=== PATIENT | male | born 1970 | race Caucasian/White ===

== ENCOUNTER 2023-08-22 14:00 | Inpatient (IN) | payer BC, SELFPAY ==
[2023-08-21] VITALS (7 sets, daily range): BP systolic 111–125; BP diastolic 55–79; BMI 29.5; BMI 28.0
[2023-08-21 15:23] LABS: % Basophils 0.4 % (0-2); % Eosinophils 0.5 % (0-6); % Immature Granulocytes 0.5 % (0-0.5); % Lymphocytes 8.6 % (20.5-51.1); % Monocytes 5.4 % (1.7-9.3); % Neutrophils 84.6 % (42.2-75.2); Absolute Eosinophils 0.1 10^3/uL (0-0.7); Absolute Immature Granulocytes 0.1 10^3/uL (0-0.05); Absolute Monocytes 0.6 10^3/uL (0.1-0.6); Absolute Neutrophils 9.4 10^3/uL (1.4-6.5); Hematocrit 26.2 % (39.0-52.0); Hemoglobin 9.2 g/dL (13.0-18.0); Mean Corp Hgb Conc. 35.1 g/dL (33.0-37.0); Mean Corpuscular Hgb 34.8 pg (27.0-31.0); Mean Corpuscular Volume 99.2 fL (80.0-94.0); Nucleated Red Blood Cells % 0 % (-); Platelet Count 241 10^3/uL (130-400); Red Blood Cell Count 2.64 10^6/uL (4.70-6.10); Red Cell Dist. Width 13.8 % (11.5-14.5); White Blood Cell Count 11.1 10^3/uL (4.8-10.8)
[2023-08-21 15:33] LABS: ALT (SGPT) 46 U/L (0-50); AST (SGOT) 41 U/L (17-59); Alkaline Phosphatase 83 U/L (38-126); Blood Urea Nitrogen 14 mg/dl (9-20); Calcium 8.8 mg/dl (8.4-10.2); Carbon Dioxide 25 mmol/L (22-30); Chloride 106 mmol/L (98-107); Glucose 112 mg/dl (70-99); Lipase 38 U/L (23-300); Sodium 135 mmol/L (135-145); Total Bilirubin 2.3 mg/dl (0.2-1.3); Total Protein 6.7 g/dl (6.3-8.2); eGFR > 60.00
[2023-08-21] MEDS: BENADRYL 25 MG IV (17:04)
[2023-08-21 17:12] LABS: Urine Albumin 1+ (Neg - Trace); Urine Bilirubin 1+ (Negative); Urine Character Clear (Clear); Urine Color Amber; Urine Glucose Negative (Negative); Urine Ketone Trace (Negative); Urine Leukocyte Trace (Negative); Urine Nitrite Negative (Negative); Urine Occult Blood Negative (Negative); Urine Specific Gravity 1.025 (<1.030); Urine Urobilinogen 2+ (Neg - 1+)
[2023-08-21 17:20] LABS: Urine Squamous Cell 0-2 /LPF (Few)
[2023-08-21 17:21] LABS: Urine Red Blood Cell None Seen /HPF (0-2); Urine White Cell 0-2 /HPF (0-5)
[2023-08-21] MEDS: NSS 1000 IV ×2 (17:42→21:20)
[2023-08-21] MEDS: ZOSYN 100 IV (17:43)
--- NOTE | 2023-08-21 18:36 | ED.GENMED ---
History of Present Illness
General
Chief Complaint: Abdominal Pain
Source: patient and spouse
Exam Limitations: none
Time Seen by Provider: 08/21/23 16:18
Nursing documentation reviewed up to this point in time: agreed with
Travel History
Have you had any contact with someone who has COVID-19?: No
Do you have any symptoms of coronavirus? Fever > 100 degrees, chills, cough, shortness of breath, sore throat, loss of taste or smell, muscle aches, or headache?: No
History of Present Illness
History of Present Illness:
53-year-old male without significant past medical history presenting to the emergency department today with concerns of right lower quadrant pain worsening over the past 3 days. Patient claims he had some subjective fevers chills today as well.
Nausea no vomiting. No history of surgeries.
Review of Systems
Review of Systems
Allergies reviewed?: Yes
All Other Systems: ROS reviewed and negative except as documented in HPI and ROS
Phy Exam
Physical Exam
Physical Exam:
GENERAL: Alert , in no apparent distress
EYE: pupils equal and reactive
NECK: Supple, no significant adenopathy.
ENT: o/p clr, mmm.
CARDIAC: Regular rate and rhythm .
LUNGS: Clear breath sounds bilaterally, no acute respiratory distress, no wheezes/rales/rhonchi
ABDOMEN: Right lower quadrant and right mid abdomen discomfort to palpation otherwise soft benign abdomen no peritoneal signs
NEUROLOGICAL: Alert and oriented, no focal neuro deficits
SKIN: Warm and dry, skin intact.
MUSCULOSKELETAL: No edema, well perfused.
PSYCH: Normal and appropriate interaction.
Course
Orders/Labs/Results
Orders:
Orders
08/21/23 15:03
Complete Blood Count/With Diff Urgent
Comprehensive Metabolic Panel Urgent
Lipase Urgent
08/21/23 16:20
CT Abd/Pel (IV only)-[facility] only Urgent
Comment:
Reason For Exam: rlq pain
08/21/23 16:57
Urinalysis Reflex To Culture Urgent
Date Specimen was Collected: 08/21/23
Time Specimen was Collected: 16:39
Urine Microscopic Reflex Cult Urgent
08/21/23 17:00
Diphenhydramine [Benadryl] 25 mg IV NOW STA
08/21/23 17:28
Piperacillin/Tazo 4.5 Gram [Zosyn] 4.5 gram in 100 ml IV NOW
08/21/23 17:29
0.9% Sodium Chloride 1000 ml [Nss] 1,000 ml IV BOLUS
Abnormal Lab Results
08/21/23 08/21/23
15:03 16:57
WBC 11.1 H 10^3/uL
(4.8-10.8)
RBC 2.64 L 10^6/uL
(4.70-6.10)
Hgb 9.2 L g/dL
(13.0-18.0)
Hct 26.2 L %
(39.0-52.0)
MCV 99.2 H fL
(80.0-94.0)
MCH 34.8 H pg
(27.0-31.0)
Abs Immat Gran (auto) 0.1 H 10^3/uL
(0-0.05)
Absolute Neuts (auto) 9.4 H 10^3/uL
(1.4-6.5)
Absolute Lymphs (auto) 1.0 L 10^3/uL
(1.2-3.4)
Neutrophils % 84.6 H %
(42.2-75.2)
Lymphocytes % 8.6 L %
(20.5-51.1)
Glucose 112 H mg/dl
(70-99)
Total Bilirubin 2.3 H mg/dl
(0.2-1.3)
Urine Ketones Trace A
(Negative)
Urine Bilirubin 1+ A
(Negative)
Urine Urobilinogen 2+ A
(Neg - 1+)
Leukocyte Esterase Rfl Trace A
(Negative)
Urine Albumin (Reflex) 1+ A
(Neg - Trace)
08/21/23 15:03
08/21/23 15:03
Vital Signs
Initial and Last Documented VS:
Initial Vital Signs
Temp Pulse Resp BP Pulse Ox
99.3 F 83 18 123/79 97
08/21/23 14:56 08/21/23 14:56 08/21/23 14:56 08/21/23 14:56 08/21/23 14:56
Last Documented Vital Signs
Temp Pulse Resp BP Pulse Ox
99.3 F 70 27 111/55 95
08/21/23 14:56 08/21/23 18:15 08/21/23 18:15 08/21/23 18:00 08/21/23 18:15
MDM/Problems Addressed
MDM/Problems Addressed:
53-year-old male presenting to the emergency department today with concerns of right-sided abdominal pain over the past 3 days worsening. Low-grade temperature upon arrival otherwise vital signs are normal. White count of 11.1 hemoglobin 9.2 but
no old levels for comparison otherwise labs showing elevated bilirubin but no additional abnormalities urine not consistent with UTI CT scan confirming appendicitis with microperforation focal phlegmon and early developing abscess. Case immediately
discussed with general surgery recommending Zosyn admission IV fluids and n.p.o.
*Critical Care Note
Total Time (30-74mins, 75-104mins- exclusive of procedures): Not Applicable
ED Attending Note
-
Portions of this chart may have been created with voice recognition software.� Occasional wrong word or��sound alike� substitutions may have occurred due to the inherent limitations of voice recognition software.
Discharge Plan
Departure
Patient Disposition: Admit
Date of Disposition: 08/21/23
Time of Disposition: 18:37
Admit to: Med/Surg
Admit to doctor: Tye
Presentation/result/management discussed w/ accepting MD/DO: General surgery
Patient with high blood pressure during this ER visit?: No
Condition: Good
Covid-19: Not Applicable
Discharge Problem:
Acute appendicitis
Prescriptions:
No Action
allopurinol 100 mg tablet
100 mg PO DAILY PRN (Reason: gout)
ascorbic acid (vitamin C) [Vitamin C] 500 mg Tablet
500 mg PO DAILY
elderberry fruit 350 mg Capsule
350 mg PO DAILY
Referrals:
Billy Hu PA-C [Family Provider] -
Interventions
Interventions:
AE-Vdqzol-Rbiwebxzwz Assessment Last Done: 08/21/23 17:50
Discharge Date and Time
Print Language: SINHALA
--- NOTE | 2023-08-21 21:34 | HPS.HSE ---
Addendum entered and electronically signed by Tj Cotto MD 08/22/23 08:21:
Patient also presenting with initial hemoglobin of 9.2 on emergency department evaluation. Likely representing chronic anemia of uncertain type, will advise patient of results and need for further outpatient evaluation after hospitalization.
Repeat CBC this a.m. to confirm persistent anemia and not spurious lab result
Addendum entered and electronically signed by Tj Cotto MD 08/22/23 08:19:
Patient seen and examined independently of overnight admitting nurse practitioner.
HPI: 53-year-old male with no past abdominal surgical history medical history only notable for gout presenting with acute onset of abdominal pain starting Friday when he was traveling to [place] for work. Pain has persisted and localized to the
right lower quadrant. Mild nausea yesterday. Has been tolerating generally regular diet. Bowels moving regularly. Followed up with his primary care yesterday and was referred to emergency department for evaluation of abdominal pain. Workup
consistent with acute appendicitis.
Temperature 100.5 vital signs stable
White blood cell count 11.1, hemoglobin 9.2, platelets 241
NAD, AAOx3
ABD: Soft, nondistended, tenderness to palpation localizing to the right lower quadrant no voluntary guarding or rebound.
CT abdomen/pelvis: Dilated appendix with periappendiceal inflammatory stranding and small fluid collection along medial aspect with small foci of extraluminal air suggestive of contained perforation. Some reactive inflammation of adjacent small
bowel and cecum but not severe phlegmonous changes.
Assessment: 53-year-old male presenting with acute appendicitis complicated by suspected perforation with contained intra-abdominal abscess adjacent to the appendix or may be within its mesentery. Febrile to 100.5 but vital signs otherwise stable.
Localizing tenderness on examination but no generalized peritonitis.
Reviewed with patient treatment options including operative versus attempted nonoperative management. We discussed the risks and benefits of both options and have elected to proceed with appendectomy. Laparoscopic appendectomy was reviewed in
detail the patient including potential operative findings and the management which includes possible drain placement in the setting of perforation, possible need for ileocecectomy if severe inflammatory response involving adjacent cecum and small
bowel. Reviewed alternative treatment options including nonoperative management, benefits and risks such as but not limited to bleeding, infectious or wound related complications, iatrogenic injury to surrounding viscera. We discussed typical
postoperative recovery and hospitalization pending operative findings.
Any of the patient's concerns or questions were fully addressed and informed consent was obtained.
Plan: Patient on OR schedule for appendectomy
N.p.o.
IV fluid hydration
Zosyn
Original Note:
Family Physician
-
Family Physician: SOTO ELIZALDE PA-C
Chief Complaint
-
abdominal pain
History of Present Illness
This is a pleasant 53 year old male who has been experiencing RLQ abdominal pain, waxes and waning, over at least 3 days but worse today along with subjective fever and chills. No v/d or dysuria, He did have some nausea today. No significant past
medical or surgery history. He does take allopurinol for gout.
Medical History
Past Medical History
Past Medical History: Reports Other (gout)
Past Surgical History: Reports None
Social History
Alcohol: Occasional
Drug: None
Personal:
Living: With Family
Employment: Employed
Family History
Family History: Not pertinent
Allergies / Home Medications
Allergies reflects when Allergies were last updated in [facility].
Allergies
Allergy/AdvReac Type Severity Reaction Status Date / Time
Iodinated Contrast Media Allergy Mild Hives Verified 08/21/23 18:39
Home Medications
allopurinol 100 mg tablet 100 mg PO DAILY PRN gout 08/21/23
ascorbic acid (vitamin C) 500 mg tablet (Vitamin C) 500 mg PO DAILY 08/21/23
elderberry fruit 350 mg capsule 350 mg PO DAILY 08/21/23
Home Medications with original date entered in [facility]
Allergy/Medication List:
see above
Review of Systems
-
History Source: Patient, Family and Coordinated Provider
Constitutional: Reports No Symptoms
EENT: Reports No Symptoms
Respiratory: Reports No Symptoms
Cardiac: Reports No Symptoms
Abdomen/GI: Reports Abdominal Pain and Nausea
: Reports No Symptoms
Musculoskeletal: Reports No Symptoms
Skin: Reports No Symptoms
Neurological: Reports No Symptoms
Endocrine: Reports No Symptoms
Hematologic/Lymphatic: Reports No Symptoms
Psych: Reports No Symptoms
Physical Exam
Vital Signs
Vital Signs
Temp Pulse Resp BP Pulse Ox
100.5 F H 85 18 124/66 97
08/21/23 21:04 08/21/23 21:04 08/21/23 21:04 08/21/23 21:04 08/21/23 21:04
Physical Exam
General: Well Developed, Well Nourished and Comfortable
HEENT: NormoCephalic, Atraumatic and PERRLA
Respiratory: Clear and Non Labored Respirations
Cardiac: Regular Rhythm
Breast: Deferred by me
GI: Soft and Tender
Rectal: Deferred by Provider
Genito-urinary: Clear Urine
Musculoskeletal: No Clubbing, No Cyanosis and No Edema
Skin: Warm and Dry
Neuro: Awake, Alert, AO x 3, No Motor Deficits and Nonfocal/grossly intact
Hematologic/Lymphatic: No Lymphadenopathy
Psych: Calm
Laboratory Results
-
08/21/23 15:03
08/21/23 15:03
Laboratory Results
Total Bilirubin 2.3 mg/dl (0.2-1.3) H 08/21/23 15:03
AST 41 U/L (17-59) 08/21/23 15:03
ALT 46 U/L (0-50) 08/21/23 15:03
Alkaline Phosphatase 83 U/L (38-126) 08/21/23 15:03
Lipase 38 U/L (23-300) 08/21/23 15:03
Data Reviewed
-
Diagnostic Radiology: Report Reviewed by me
CT Scan: Report Reviewed by me
Lab Data: Labs Reviewed by me
Impression/Plan
-
IMPRESSION:acute appendicitis with microperforation and abscess formation radiographically
PLAN: This is a pleasant 53 year old male who has been experiencing RLQ abdominal pain, waxes and waning, over at least 3 days but worse today along with subjective fever and chills. No v/d or dysuria, He did have some nausea today. No significant
past medical or surgery history. He does take allopurinol for gout
*Acute appendicitis: Surgical eval, NPO, NS IVF, Zosyn IV, Morphine IV, Zofran Iv.
*DVT prophylaxis: Sequential stockings and Teds. ambulate. oob.
*Disposition: FC. General surgery service.
[2023-08-22] VITALS (9 sets, daily range): BP systolic 10–135; BP diastolic 49–75
[2023-08-22] MEDS: ZOSYN 50 IV ×4 (00:09→23:23)
[2023-08-22 09:19] LABS: Hematocrit 24.6 % (39.0-52.0); Hemoglobin 8.3 g/dL (13.0-18.0); Mean Corp Hgb Conc. 33.7 g/dL (33.0-37.0); Mean Corpuscular Hgb 34.2 pg (27.0-31.0); Mean Corpuscular Volume 101.2 fL (80.0-94.0); Mean Platelet Volume 10.6 fL (7.4-10.4); Platelet Count 238 10^3/uL (130-400); Red Blood Cell Count 2.43 10^6/uL (4.70-6.10); Red Cell Dist. Width 14.2 % (11.5-14.5)
[2023-08-22] MEDS: NSS 1000 IV ×2 (10:45→23:23)
--- NOTE | 2023-08-22 13:56 | W.IMMPOSTOP ---
Addendum entered and electronically signed by Tj Ctoto MD 08/22/23 14:14:
#[id number]
Original Note:
Surgical Immed Post Op Note
-
Primary Surgeon: Kirti
Assisting Surgeon: Kaila MCDONALD
Pre-op Diagnosis: Acute Appendicitis
Post-op Diagnosis: Gangrenous perforated acute appendicitis with abscess
Procedure Performed: Laparoscopic appendectomy
Anesthesia Type: GETA +0.25% Marcaine
Specimen / Cultures: Appendix
Estimated Blood Loss: 14 mL
Complications: None immediate
Operative Findings: Retrocecal/completely retroperitoneal appendix which was gangrenous with perforation and abscess in the retrocecal/retroperitoneal location. Appendix projecting superiorly overlying Gerota's fascia to essentially the hepatic
flexure. Terminal ileum, cecum and portions of a ascending colon all required mobilization to expose appendix for subsequent appendectomy. Gangrenous perforation towards the base of appendix with fecal material visible however 1 to 2 cm of intact
appendiceal base able to be stapled for control/appendectomy with Endo TOMEKA purple load stapler.
Drains: 19 Elvis drain placed from left lower quadrant 5 mm trocar site into the right paracolic gutter to the inferior liver margin.
Plan: N.p.o., IV fluid hydration, broad-spectrum empiric antibiotic coverage, maintain drain 5 to 7 days postop likely.
Left voice message on patient's 's phone. Also tried home phone number which went to voicemail as well.
[2023-08-22] MEDS: ZOSYN IV (14:10)
--- NOTE | 2023-08-22 15:12 | PTCARENOTE ---
1500: Patient arrived to 2S. Full head to toe assessment completed. Patient has 3 lap sites and one puncture site. Sites are open to air with no drainage. Sites are pink in color. IV fluids running per order. Patient wearing 2L NC with SpO2 greater
than 92%. RYAN drain on patients left side with a small amount of serosanquineous fluid. Call lang within reach and bed in lowest position.
--- NOTE | 2023-08-22 15:19 | CM ---
Initial assessment completed with patient who lives with his in a 2 story home plus basement with 1 step to enter, B/B on with 1/2 bath on , no DME or in-home services. 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 Pharmacy is [facility] [address] in [place] and PC PA is Billy Hu. Anticipate no needs at discharge. Will continue to follow should needs change.
[2023-08-22] MEDS: DILAUDID 0.5 MG IV (15:21)
[2023-08-22] MEDS: DILAUDID 1 MG IV (20:05)
[2023-08-23 03:35] VITALS: BP 118/70
[2023-08-23] MEDS: ZOSYN 50 IV ×3 (05:29→17:09)
[2023-08-23 06:00] VITALS: BMI 28.0
[2023-08-23 07:10] LABS: % Basophils 0.1 % (0-2); % Immature Granulocytes 0.4 % (0-0.5); % Lymphocytes 5.6 % (20.5-51.1); % Monocytes 5.5 % (1.7-9.3); % Neutrophils 88.4 % (42.2-75.2); Absolute Lymphocytes 0.6 10^3/uL (1.2-3.4); Absolute Monocytes 0.6 10^3/uL (0.1-0.6); Absolute Neutrophils 9.2 10^3/uL (1.4-6.5); Hematocrit 26.1 % (39.0-52.0); Hemoglobin 8.6 g/dL (13.0-18.0); Mean Corpuscular Hgb 33.5 pg (27.0-31.0); Mean Corpuscular Volume 101.6 fL (80.0-94.0); Mean Platelet Volume 11.1 fL (7.4-10.4); Nucleated Red Blood Cells % 0 % (-); Platelet Count 289 10^3/uL (130-400); Red Blood Cell Count 2.57 10^6/uL (4.70-6.10); Red Cell Dist. Width 13.8 % (11.5-14.5); White Blood Cell Count 10.4 10^3/uL (4.8-10.8)
[2023-08-23 07:13] VITALS: BP 129/71
[2023-08-23 07:39] LABS: Blood Urea Nitrogen 13 mg/dl (9-20); Calcium 8.2 mg/dl (8.4-10.2); Carbon Dioxide 24 mmol/L (22-30); Chloride 106 mmol/L (98-107); Estimated Creatinine Clearance 109 ml/min; Glucose 115 mg/dl (70-99); Potassium 4.5 mmol/L (3.5-5.1); Sodium 135 mmol/L (135-145); eGFR > 60.00
[2023-08-23] MEDS: NSS 1000 IV ×2 (08:41→22:02)
--- NOTE | 2023-08-23 09:48 | W.PN.GS2 ---
Today's Communication / Plan
-
`
Assessment / Plan
-
Assessment: 53-year-old male POD #1 status post laparoscopic appendectomy for gangrenous, perforated retrocecal acute appendicitis with abscess.
Chronic anemia -patient unsure of etiology, last saw visiting housekeeper 20 years ago
H/o Gilbert's
AFVSS
Chronic anemia stable with hemoglobin 8.6 this a.m.
Overall doing well awaiting signs of postoperative GI recovery
RYAN expected character and quantity
Plan: Multimodal pain control options
Reduce IV fluid rate
Full liquid diet but advised patient to take caution with portion sizes and monitor for any abdominal bloating/distention or nausea
Continue Zosyn
Maintain RYAN, anticipate discharge home with RYAN in place for 5 to 7 days
Subjective Data
-
Date of Service: August 23, 2023
Patient seen and examined.
Overall feels fairly well.
Right-sided abdominal pain and discomfort particularly with moving and walking.
Voiding.
No nausea, no flatus, no BM
Objective Data
-
Intake and Output
08/22/23 08/23/23 08/24/23
06:59 06:59 06:59
Intake Total 600 / 600 2535 / 2535
Output Total 1695 / 1695
Balance 600 / 600 840 / 840
Intake:
IV fluids (Total) 500 / 500 2435 / 2435
normosol 75 / 75
IV piggybacks 100 / 100 100 / 100
Output:
Drain Output (Total) 70 / 70
Left Abdomen Francisco Javier-Gallegos 70 / 70
Urine, Voided 1625 / 1625
Other:
Number of approximated MODERATE 2
amounts of urine
Vital Signs
Temp Pulse Resp BP Pulse Ox
98.6 F 69 14 129/71 94
08/23/23 07:13 08/23/23 07:13 08/23/23 07:13 08/23/23 07:13 08/23/23 07:13
Lab Results
08/23/23 05:31
08/23/23 05:31
Calcium 8.2 mg/dl (8.4-10.2) L 08/23/23 05:31
Total Bilirubin 2.3 mg/dl (0.2-1.3) H 08/21/23 15:03
AST 41 U/L (17-59) 08/21/23 15:03
ALT 46 U/L (0-50) 08/21/23 15:03
Alkaline Phosphatase 83 U/L (38-126) 08/21/23 15:03
Total Protein 6.7 g/dl (6.3-8.2) 08/21/23 15:03
Albumin 4.0 g/dl (3.5-5.0) 08/21/23 15:03
Physical Exam
-
NAD AAOx3
ABD: Soft, nondistended, tenderness palpation right side and less so at surgical sites. Surgical glue dressings in place
RYAN with murky serosanguineous fluid
[2023-08-23] MEDS: TORADOL 10 MG IV ×2 (10:18→18:15)
[2023-08-23 11:13] VITALS: BP 125/70
[2023-08-23] MEDS: NSS IV (13:02)
[2023-08-23 15:37] VITALS: BP 136/74
--- NOTE | 2023-08-23 16:19 | CM ---
Patient to be d/c with RYAN drains for 5-7 days. Met with patient to discuss RN at home. Reviewed Medicare ratings. He chooses [facility] RN only at home. has been trained by RN at bedside. Referral sent in [facility] to [facility] for RN only.
PLAN:home [facility] RN.
[2023-08-23] MEDS: ZOFRAN 4 MG IV (21:50)
[2023-08-23 23:00] VITALS: BP 152/81
[2023-08-24] MEDS: ZOSYN 50 IV ×5 (00:31→23:10)
[2023-08-24] MEDS: DILAUDID 1 MG IV (00:32)
--- NOTE | 2023-08-24 02:37 | PTCARENOTE ---
2150pt c/o feeling nauseous, prn zofran given, pt was noted vomiting 100cc clear liquid x1.
[2023-08-24 04:59] VITALS: BMI 27.6
[2023-08-24 06:13] LABS: % Basophils 0.2 % (0-2); % Eosinophils 0.1 % (0-6); % Immature Granulocytes 0.5 % (0-0.5); % Lymphocytes 5.7 % (20.5-51.1); % Monocytes 6.8 % (1.7-9.3); % Neutrophils 86.7 % (42.2-75.2); Absolute Immature Granulocytes 0.1 10^3/uL (0-0.05); Absolute Lymphocytes 0.6 10^3/uL (1.2-3.4); Absolute Monocytes 0.7 10^3/uL (0.1-0.6); Absolute Neutrophils 8.6 10^3/uL (1.4-6.5); Hematocrit 27.4 % (39.0-52.0); Hemoglobin 9.2 g/dL (13.0-18.0); Mean Corp Hgb Conc. 33.6 g/dL (33.0-37.0); Mean Corpuscular Hgb 33.7 pg (27.0-31.0); Mean Corpuscular Volume 100.4 fL (80.0-94.0); Mean Platelet Volume 9.9 fL (7.4-10.4); Nucleated Red Blood Cells % 0 % (-); Platelet Count 312 10^3/uL (130-400); Red Blood Cell Count 2.73 10^6/uL (4.70-6.10); Red Cell Dist. Width 13.7 % (11.5-14.5)
[2023-08-24 06:56] LABS: Blood Urea Nitrogen 16 mg/dl (9-20); Calcium 8.8 mg/dl (8.4-10.2); Carbon Dioxide 25 mmol/L (22-30); Chloride 103 mmol/L (98-107); Estimated Creatinine Clearance 97 ml/min; Glucose 139 mg/dl (70-99); Potassium 4.8 mmol/L (3.5-5.1); Sodium 137 mmol/L (135-145); eGFR > 60.00
[2023-08-24 07:01] VITALS: BP 151/79
--- NOTE | 2023-08-24 10:56 | W.PN.GS2 ---
Addendum entered and electronically signed by Tj Cotto MD 08/24/23 13:33:
Patient seen and examined earlier this a.m. with nurse practitioner. Agree with documented progress note.
Initially this a.m. he was tolerating liquid diet, denied nausea. Occasional flatus. Reports some heartburn and indigestion
In follow-up nursing is now stated that patient's reported heartburn/indigestion may have been small vomiting
He vomited just a short while ago again
AFVSS
ABD: Softly distended, mild tenderness on palpation, no rebound rigidity or guarding
RYAN with serous fluid, nonpurulent -high output noted -likely reflective of reactive ascites from surgery and severity of appendicitis
Assessment/plan: 53-year-old male POD #2 status post lap appendectomy for acute appendicitis complicated by gangrenous perforation, retrocecal location, with abscess
Developing ileus
N.p.o., IV fluid hydration
Check abdominal x-ray
Attempt to manage ileus with antiemetics and bowel rest. If persistent/recurrent vomiting or worsening abdominal distention would recommend NG tube placement
Continue Zosyn
RYAN
Lovenox for VTE prophylaxis now with stable hemoglobin and mostly serous RYAN outputs
Original Note:
Today's Communication / Plan
-
Continue FLD
Continue IVF
OOB/Ambulate
Assessment / Plan
-
Assessment: 53-year-old male POD #2 status post laparoscopic appendectomy for gangrenous, perforated retrocecal acute appendicitis with abscess.
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
H/o Gilbert's
AFVSS
Chronic anemia stable with hemoglobin post operatively
Overall doing well awaiting signs of postoperative GI recovery
RYAN outputs increased, likely reactive fluid (serous)
Plan: Multimodal pain control options
Continue IVF at 80ml/hr
Full liquid diet but advised patient to take caution with portion sizes and monitor for any abdominal bloating/distention or nausea
Continue Zosyn IV
Maintain RYAN, anticipate discharge home with RYAN in place for 5 to 7 days
Lovenox 40mg sq for VTE ppx, SCD's while in bed
Subjective Data
-
Date of Service: August 24, 2023
Patient seen and examined at bedside with Dr. Cotto. Belching and feeling of abdominal fullness. Some mild nausea last night. Passing occasional flatus, no BM. No fevers/chills. Voiding without difficulty.
Objective Data
-
Intake and Output
08/23/23 08/24/23 08/25/23
06:59 06:59 06:59
Intake Total 2535 / 2535 4020 / 4020
Output Total 1695 / 1695 1090 / 1090
Balance 840 / 840 2930 / 2930
Intake:
Oral fluids 1520 / 1520
IV fluids (Total) 2435 / 2435 2400 / 2400
normosol 75 / 75
IV piggybacks 100 / 100 100 / 100
Output:
Drain Output (Total) 70 / 70 790 / 790
Left Abdomen Francisco Javier-Gallegos 70 / 70 790 / 790
Urine, Voided 1625 / 1625 300 / 300
Other:
Number of approximated MODERATE 3
amounts of urine
Vital Signs
Temp Pulse Resp BP Pulse Ox
98.5 F 71 18 151/79 94
08/24/23 07:01 08/24/23 07:01 08/24/23 07:01 08/24/23 07:01 08/24/23 07:01
Lab Results
08/24/23 05:56
08/24/23 05:56
Calcium 8.8 mg/dl (8.4-10.2) 08/24/23 05:56
Total Bilirubin 2.3 mg/dl (0.2-1.3) H 08/21/23 15:03
AST 41 U/L (17-59) 08/21/23 15:03
ALT 46 U/L (0-50) 08/21/23 15:03
Alkaline Phosphatase 83 U/L (38-126) 08/21/23 15:03
Total Protein 6.7 g/dl (6.3-8.2) 08/21/23 15:03
Albumin 4.0 g/dl (3.5-5.0) 08/21/23 15:03
Physical Exam
-
NAD AAOx3
ABD: Soft, mild distention, tenderness palpation right side and less so at surgical sites. Surgical glue dressings in place
RYAN with clearing serous fluid
[2023-08-24] MEDS: NSS 1000 IV (11:38)
[2023-08-24 16:23] VITALS: BP 131/73
[2023-08-24] MEDS: LOVENOX 40 MG SC (17:27)
[2023-08-24] MEDS: ZOFRAN 4 MG IV (19:54)
[2023-08-24 23:46] VITALS: BP 135/81
[2023-08-25] MEDS: NSS 1000 IV ×2 (02:26→16:32)
[2023-08-25] MEDS: ZOFRAN 4 MG IV ×3 (02:26→16:44)
[2023-08-25 04:58] LABS: % Basophils 0.2 % (0-2); % Eosinophils 0.1 % (0-6); % Immature Granulocytes 0.5 % (0-0.5); % Monocytes 8.8 % (1.7-9.3); % Neutrophils 78.4 % (42.2-75.2); Absolute Monocytes 0.8 10^3/uL (0.1-0.6); Absolute Neutrophils 6.8 10^3/uL (1.4-6.5); Hemoglobin 9.1 g/dL (13.0-18.0); Mean Corp Hgb Conc. 33.7 g/dL (33.0-37.0); Mean Corpuscular Hgb 33.7 pg (27.0-31.0); Mean Platelet Volume 10.3 fL (7.4-10.4); Nucleated Red Blood Cells % 0.2 % (-); Platelet Count 360 10^3/uL (130-400); Red Cell Dist. Width 14.2 % (11.5-14.5); White Blood Cell Count 8.7 10^3/uL (4.8-10.8)
[2023-08-25 05:27] LABS: Blood Urea Nitrogen 15 mg/dl (9-20); Calcium 8.6 mg/dl (8.4-10.2); Carbon Dioxide 27 mmol/L (22-30); Chloride 107 mmol/L (98-107); Estimated Creatinine Clearance 97 ml/min; Glucose 114 mg/dl (70-99); Potassium 4.2 mmol/L (3.5-5.1); Sodium 138 mmol/L (135-145); eGFR > 60.00
[2023-08-25] MEDS: ZOSYN 50 IV ×4 (05:55→23:17)
[2023-08-25 07:10] VITALS: BP 125/76
--- NOTE | 2023-08-25 10:26 | W.PN.GS2 ---
Today's Communication / Plan
-
NPO sips of clears
Assessment / Plan
-
Assessment: 53-year-old male POD #3 status post laparoscopic appendectomy for gangrenous, perforated retrocecal acute appendicitis with abscess.
Chronic anemia -patient unsure of etiology, last saw manager progressive care 20 years ago.
H/o Gilbert's
AFVSS
Chronic anemia stable with hemoglobin post operatively
Await GI recovery. Ileus present. +Small BM this morning without further nausea. Following on bowel rest.
RYAN outputs noted, likely reactive fluid (serous)
Plan:
Multimodal pain control options
Continue IVF at 80ml/hr
NPO with sips of clears. May need NGT if nausea/vomiting recur
Continue Zosyn IV
Maintain RYAN, anticipate will remain in place upon discharge home
Lovenox 40mg sq for VTE ppx, SCD's while in bed
Subjective Data
-
Date of Service: August 25, 2023
Patient seen and examined at bedside with Dr. Benavides. Denies nausea this am, some overnight. No vomiting since yesterday afternoon. Passed 2 small formed BM's with some flatus. Pain well managed.
Objective Data
-
Intake and Output
08/24/23 08/25/23 08/26/23
06:59 06:59 06:59
Intake Total 4020 / 4020 2300 / 2300
Output Total 1090 / 1090 988 / 988
Balance 2930 / 2930 1312 / 1312
Intake:
Oral fluids 1520 / 1520 300 / 300
IV fluids (Total) 2400 / 2400 1900 / 1900
IV piggybacks 100 / 100 100 / 100
Output:
Drain Output (Total) 790 / 790 988 / 988
Left Abdomen Francisco Javier-Gallegos 790 / 790 988 / 988
Urine, Voided 300 / 300
Other:
Number of approximated MODERATE 3 1
amounts of urine
Vital Signs
Temp Pulse Resp BP Pulse Ox
98.2 F 62 17 125/76 95
08/25/23 07:10 08/25/23 07:10 08/25/23 07:10 08/25/23 07:10 08/25/23 07:10
Lab Results
08/25/23 03:57
08/25/23 03:57
Calcium 8.6 mg/dl (8.4-10.2) 08/25/23 03:57
Total Bilirubin 2.3 mg/dl (0.2-1.3) H 08/21/23 15:03
AST 41 U/L (17-59) 08/21/23 15:03
ALT 46 U/L (0-50) 08/21/23 15:03
Alkaline Phosphatase 83 U/L (38-126) 08/21/23 15:03
Total Protein 6.7 g/dl (6.3-8.2) 08/21/23 15:03
Albumin 4.0 g/dl (3.5-5.0) 08/21/23 15:03
Physical Exam
-
NAD
ABD softly distended, some minimal tympany, mildly tender, no rebound/rigidity/guarding
Incisions well approximated with intact glue, no erythema
RYAN with serous fluid
[2023-08-25 15:15] VITALS: BP 129/73
--- NOTE | 2023-08-25 16:34 | CM ---
Chart reviewed and plan was to home with [facility], wrapper caser to follow with patient progress.
Plan; Home with [facility].
[2023-08-25] MEDS: LOVENOX 40 MG SC (18:23)
[2023-08-25 23:15] VITALS: BP 145/75
[2023-08-26] MEDS: NSS 1000 IV (05:51)
[2023-08-26] MEDS: ZOSYN 50 IV ×2 (05:52→11:36)
[2023-08-26 05:55] LABS: Hematocrit 26.2 % (39.0-52.0); Hemoglobin 8.9 g/dL (13.0-18.0); Mean Corpuscular Hgb 33.7 pg (27.0-31.0); Mean Corpuscular Volume 99.2 fL (80.0-94.0); Mean Platelet Volume 9.8 fL (7.4-10.4); Platelet Count 366 10^3/uL (130-400); Red Blood Cell Count 2.64 10^6/uL (4.70-6.10); Red Cell Dist. Width 14.6 % (11.5-14.5); White Blood Cell Count 7.1 10^3/uL (4.8-10.8)
[2023-08-26 06:21] LABS: Blood Urea Nitrogen 15 mg/dl (9-20); Calcium 8.4 mg/dl (8.4-10.2); Carbon Dioxide 26 mmol/L (22-30); Chloride 107 mmol/L (98-107); Estimated Creatinine Clearance 97 ml/min; Glucose 110 mg/dl (70-99); Potassium 3.9 mmol/L (3.5-5.1); Sodium 137 mmol/L (135-145); eGFR > 60.00
[2023-08-26 07:00] VITALS: BP 127/69
--- NOTE | 2023-08-26 08:45 | VNURNOTE ---
Home Health Liaison spoke with patient's Hoda 08/24 to discuss [facility] nurse visits, schedule and homebound status. Hoda is agreeable and understands that visits at home will be 2-3 x per week to assess and teach medical management and RYAN drain
care. She will be able to assist patient with RYAN drain care.
Hoda is aware that [facility] will contact them for start of care in 1-2 days after discharge from .
[facility] referral has been completed and accepted in [facility].
--- NOTE | 2023-08-26 08:47 | W.PN.GS2 ---
Today's Communication / Plan
-
-- Clears, ADAT
-- HLIV if tolerates diet
-- Zosyn
Assessment / Plan
-
Assessment: 53-year-old male POD#4 status post laparoscopic appendectomy for gangrenous, perforated retrocecal acute appendicitis with abscess.
Chronic anemia -patient unsure of etiology, last saw liquor tester 20 years ago.
H/o Gilbert's
AFVSS
Chronic anemia stable with hemoglobin post operatively
Await GI recovery. Ileus reeolsing. +Small BM and flatus without nausea
RYAN outputs noted, likely reactive fluid (serous)
Plan:
Clears ADAT to [facility]
Multimodal pain control options
HLIV if tolerating diet
Continue Zosyn IV, will touch base on duration of abx
Maintain RYAN, anticipate will remain in place upon discharge home
Lovenox 40mg sq for VTE ppx, SCD's while in bed
Subjective Data
-
Date of Service: August 26, 2023
No complaints, feels ready to go home. Denies nausea or vomiting. Passing flatus and loose, nonbloody stools. No fevers or chills. Ambulating. Voiding.
Objective Data
-
Intake and Output
08/25/23 08/26/23 08/27/23
06:59 06:59 06:59
Intake Total 2300 / 2300 3320 / 3320
Output Total 988 / 988 505 / 505 50 / 50
Balance 1312 / 1312 2815 / 2815 -50 / -50
Intake:
Oral fluids 300 / 300 1280 / 1280
IV fluids (Total) 1900 / 1900 1840 / 1840
IV piggybacks 100 / 100 200 / 200
Output:
Drain Output (Total) 988 / 988 505 / 505 50 / 50
Left Abdomen Francisco Javier-Gallegos 988 / 988 505 / 505 50 / 50
Other:
Number of approximated MODERATE 1 3
amounts of urine
Vital Signs
Temp Pulse Resp BP Pulse Ox
98.1 F 53 16 127/69 96
08/26/23 07:00 08/26/23 07:00 08/26/23 07:00 08/26/23 07:00 08/26/23 07:00
Lab Results
08/26/23 05:35
08/26/23 05:35
Calcium 8.4 mg/dl (8.4-10.2) 08/26/23 05:35
Total Bilirubin 2.3 mg/dl (0.2-1.3) H 08/21/23 15:03
AST 41 U/L (17-59) 08/21/23 15:03
ALT 46 U/L (0-50) 08/21/23 15:03
Alkaline Phosphatase 83 U/L (38-126) 08/21/23 15:03
Total Protein 6.7 g/dl (6.3-8.2) 08/21/23 15:03
Albumin 4.0 g/dl (3.5-5.0) 08/21/23 15:03
Physical Exam
-
Gen: NAD
Abd: soft, NT, minimal distension, non-peritoneal, incisions c/d/i - no erythema, ecchymosis or drainage, RYAN serous
--- NOTE | 2023-08-26 10:32 | CM ---
Addendum entered by Curt Mejia 08/26/23 14:53:
Discharge order is noted. Pt is aware and he stated his spouse will transport home.
Please fax discharge instructions to [facility] at discharge [phone]
D/C plan: home with [facility] and family support. Spouse to transport at discharge.
No other discharge needs identified.
Original Note:
CM following re: discharge planning.
Reviewed pt's chart, met with pt.
Pt is POD#4 status post laparoscopic appendectomy for gangrenous, perforated retrocecal acute appendicitis with abscess. Pt stated he is doing much better. Pt is aware he will be discharged home when medically stable with [facility] for RYAN drain care.
[facility] liaison follows up noted.
Please fax discharge instructions to [facility] at discharge [phone]
D/C plan: home with [facility] and family support. Spouse to transport at discharge.
CM will follow with discharge plan updates as hospitalization progresses
--- NOTE | 2023-08-26 13:28 | W.PN.SURGUPD ---
Surgical Update
Surgical Update
pt seen in follow up
feeling well, pain controlled, no nausea
+fl and loose BMs
RYAN light straw serous fluid, no purulence, no blood
ABD: soft, ND, NTTTP
A/P: return of GI function, no post op infectious signs/symptoms
okay for d/c home today
7 days augmentin
reviewed d/c instruction
--- NOTE | 2023-08-26 13:34 | W.DS.TRANS ---
Addendum entered and electronically signed by ESTEFANIA Scott 08/29/23 09:55:
dictated #[id number]
Original Note:
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
-
Discharge Instructions:
Discharge Diagnosis/Procedures Perforated Appendicitis with Abscess;
laparoscopic appendectomy
Diet As tolerated,Regular
Additional Diets smaller meals initially for few days until
abdominal bloating and distention continue to
improve. avoid oily/greasy/fatty/spicy foods
for 1-2 weeks.
Activity No strenuous activity
Additional Activity Do not lift more than 20 pounds for the next 3
weeks
Driving Restrictions No driving for 24 hours
Bathing Restrictions OK to Shower
Other Services [facility]
Wound Care Ok to shower and cleanse your incisions with
soap and water. Remove gauze dressing at old
drain site in ~24hrs or if saturated sooner.
dry gauze dressing/band aide over site until dry
.
Instructions:
Stand-Alone Forms:
Changes to Home Medications: No
Discharge Medications:
DC Medications w/original date entered in [facility]
allopurinol 100 mg tablet 100 mg PO DAILY PRN gout 08/21/23
ascorbic acid (vitamin C) 500 mg tablet (Vitamin C) 500 mg PO DAILY Supplement 08/21/23
elderberry fruit 350 mg capsule 350 mg PO DAILY Supplement 08/21/23
melatonin 1 PRN PRN insomnia 08/23/23
acetaminophen 500 mg tablet (Tylenol Extra Strength) 1,000 mg (2 x 500 mg) PO Q6HPRN PRN mild pain #1 tab 08/26/23
amoxicillin 875 mg-potassium clavulanate 125 mg tablet 1 tab PO Q12 antibiotic #14 tabs 08/26/23
ibuprofen 200 mg tablet 400 - 600 mg (2 - 3 x 200 mg) PO Q6HPRN PRN moderate pain #1 tab 08/26/23
Home Medication Changes
Pending Results: No
[2023-08-26 15:24] VITALS: BP 114/68
== END 2023-08-26 15:30 | disposition home or self-care (01) | DRG 398 ==
LOC: 2 SOUTH 14:00
PROVIDERS: Emergency Medicine; Physician Assistant; Registered Nurse; Surgery; ADMITTING PHYSICIAN Surgery; EMERGENCY PHYSICIAN Emergency Medicine; FAMILY PHYSICIAN Physician Assistant Medical
PROC: 0DTJ4ZZ Resection of Appendix, Percutaneous Endoscopic Approach (ICD-10-PCS; 2023-08-22)
DX: K35.33 Acute appendicitis with perforation, localized peritonitis, and gangrene, with abscess (principal); K56.7 Ileus, unspecified; K91.89 Other postprocedural complications and disorders of digestive system; M10.9 Gout, unspecified; D64.9 Anemia, unspecified
CPT/HCPCS: 88304; 74018; 74177; 80048; 80053; 81003; 81015; 83690; 85025; 85027; 96365; 96375; 99285; Q9967